=== PATIENT | male | born 1960 | race African-American/Black ===

== ENCOUNTER 2021-12-30 15:35 | Emergency (ER) | payer MEDICAID ==
[~2021-12-30] VITALS: Ht 172.7 cm; Wt 74.0 kg
[2021-12-30 15:46] VITALS: BP 172/93
[2021-12-30] MEDS ORDERED: LORAZEPAM 0.5MG TABLET PO ONE (18:45)
[2021-12-30] MEDS ORDERED: KETOROLAC 60MG/2ML VIAL IM ONE (18:45)
[2021-12-30] MEDS ORDERED: IBUP-2029 MT (19:07)
[2021-12-30] MEDS ORDERED: METH4TAB17 MT (19:07)
[2021-12-30] MEDS ORDERED: METH-653 MT (19:07)
== END 2021-12-30 22:53 | disposition home or self-care (01) ==
LOC: ER 15:35
DX: M54.59 Other low back pain (principal); M79.604 Pain in right leg; R53.1 Weakness; R03.0 Elevated blood-pressure reading, without diagnosis of hypertension; R20.0 Anesthesia of skin
CPT/HCPCS: 72100; 99283

== ENCOUNTER 2022-05-10 12:59 | Emergency (ER) | payer SELFPAY ==
[~2022-05-10] VITALS: Ht 172.7 cm; Wt 75.0 kg
[~2022-05-10 12:59] MED LIST: IBUP-2029 MT; METH-653 MT; METH4TAB17 MT
[2022-05-10] MEDS ORDERED: ACETAMINOPHEN 325MG TABLET PO STA (13:35)
[2022-05-10 13:59] LABS: BASOPHILS % 0.6 % (0.0-2.0); EOSINOPHILS % 1.8 % (0.0-5.0); HEMATOCRIT. 40.7 % (42.0-52.0); HEMOGLOBIN. 13.7 g/dL (14.0-18.0); LYMPHOCYTES % 22.4 % (20.0-50.0); MEAN CORPUSCULAR HEMOGLOBIN 30.1 pg (28.0-32.0); MEAN CORPUSCULAR VOLUME 89.2 fL (80.0-94.0); MEAN PLATELET VOLUME 9.3 fl (7.4-10.4); MONOCYTES % 7.7 % (2.0-8.0); NEUTROPHILS % 67.5 % (40.0-76.0); PLATELET 218 x1000/uL (130-400); RED BLOOD CELL COUNT 4.56 mill/uL (4.7-6.1); RED CELL DISTRIBUTION WIDTH 14.5 % (11.6-14.6)
[2022-05-10 14:05] LABS: CHLORIDE 104 mEq/L (98-107)
[2022-05-10 14:08] LABS: PROTHROMBIN TIME 10.6 sec (9.6-11.0)
[2022-05-10] MEDS ORDERED: BACITRACIN ZINC OINT UDPKT TOP ONE (14:15)
[2022-05-10] MEDS ORDERED: TETANUS, DIPHTHERIA, PERTUSSIS VAC/PF 0.5ML (>10YR OLD) IM ONE (14:15)
[2022-05-10] MEDS ORDERED: ACETAMINOPHEN 325MG TABLET PO ONE (14:15)
[2022-05-10] MEDS ORDERED: LIDOCAINE HCL 1% 20ML VIAL (Pyxis) INJ INFIL ONE (14:45)
[2022-05-10] MEDS ORDERED: IOHEXOL-300 100 ML BOTTLE ONE (15:11)
[2022-05-10] MEDS ORDERED: LIDOCAINE HCL 1% 10 MG/ML 10ML VIAL IJ NR (16:00)
[2022-05-10 17:15] VITALS: BP 123/72
== END 2022-05-10 17:31 | disposition home or self-care (01) ==
LOC: ER 12:59
DX: S01.112A Laceration without foreign body of left eyelid and periocular area, initial encounter (principal); S09.8XXA Other specified injuries of head, initial encounter; V43.52XA Car driver injured in collision with other type car in traffic accident, initial encounter; Y93.89 Activity, other specified; Y92.488 Other paved roadways as the place of occurrence of the external cause
CPT/HCPCS: 12011; 36415; 70450; 71045; 71260; 72125; 74177; 80053; 84484; 85025; 85610; 90715; 93005; 99285; J3490; Q9967; Z7610

== ENCOUNTER 2022-05-15 13:20 | Emergency (ER) | payer SELFPAY | END 2022-05-15 13:54 | disposition left against medical advice (07) | LOC: ER 13:20 | DX: Z53.21 Procedure and treatment not carried out due to patient leaving prior to being seen by health care provider (principal) ==

== ENCOUNTER 2022-05-15 15:05 | Emergency (ER) | payer SELFPAY ==
[~2022-05-15] VITALS: Ht 172.7 cm; Wt 75.0 kg
[2022-05-15 18:05] VITALS: BP 123/74
== END 2022-05-15 18:06 | disposition home or self-care (01) ==
LOC: ER 15:39
DX: Z48.02 Encounter for removal of sutures (principal)
CPT/HCPCS: 99281